=== PATIENT | male | born 1995 | race Caucasian/White ===

== ENCOUNTER 2016-07-05 21:27 | Emergency (ER) | payer BC ==
[2016-07-05 22:18] VITALS: BP 116/63
[2016-07-05] MEDS ORDERED: OXYCODONE-ACETAMINOPHEN 5-325 MG TABLET PO ONE (23:07)
--- NOTE | 2016-07-05 23:10 | ER Document Report ---
ED Extremity Problem, Lower - General Chief Complaint: Knee Injury Stated Complaint: LEFT KNEE INJURY Time Seen by Provider: 07/05/16 23:03 Mode of Arrival: Wheelchair Information source: Patient TRAVEL OUTSIDE OF THE [place] IN LAST 30 DAYS: No - HPI Patient complains to provider of: Injury, Pain Location: Knee Occurred: Just prior to arrival Where: Outdoors Onset/Duration: Sudden Quality of pain: Achy Severity: Moderate Pain Level: 4 Context: Twisted Recent injury: Yes Associated symptoms: Painful ambulation Exacerbated by: Movement, Walking Relieved by: Nothing Notes: Patient is a 20-year-old male who presents to the emergency room complaining of left knee pain, states he was stepping on uneven ground, when he stepped on his leg twisted and he felt a pop in the knee, has been painful to move or ambulate on it since, denies any other injury - Related Data Allergies/Adverse Reactions: No Known Allergies Allergy (Verified 07/05/16 22:16) Past Medical History - General Information source: Patient - Social History Smoking Status: Current Some Day Smoker Family History: Reviewed & Not Pertinent Renal/ Medical History: Denies: Hx Peritoneal Dialysis - Immunizations Hx Diphtheria, Pertussis, Tetanus Vaccination: Yes - 2009 Review of Systems - Review of Systems Constitutional: No symptoms reported EENT: No symptoms reported Cardiovascular: No symptoms reported Respiratory: No symptoms reported Gastrointestinal: No symptoms reported Genitourinary: No symptoms reported Male Genitourinary: No symptoms reported Musculoskeletal: See HPI Skin: No symptoms reported Hematologic/Lymphatic: No symptoms reported Neurological/Psychological: No symptoms reported -: Yes All other systems reviewed and negative Physical Exam - Vital signs Vitals: Temp Pulse Resp BP Pulse Ox 98.5 F 68 20 116/63 99 07/05/16 22:16 07/05/16 22:16 07/05/16 22:16 07/05/16 22:16 07/05/16 22:16 - Notes Notes: - General General appearance: Appears well, Alert In distress: None - HEENT Head: Normocephalic, Atraumatic Eyes: Normal Conjunctiva: Normal Extraocular movements intact: Yes Eyelashes: Normal Pupils: PERRL - Respiratory Respiratory status: No respiratory distress - Cardiovascular Rhythm: Regular - Abdominal Inspection: Normal - Back Back: Normal - Extremities General upper extremity: Normal inspection - Neurological Neuro grossly intact: Yes Orientation: AAOx4 [place] Coma Scale Eye Opening: Spontaneous [place] Coma Scale Verbal: Oriented [place] Coma Scale Motor: Obeys Commands [place] Coma Scale Total: 15 - Psychological Associated symptoms: Normal affect, Normal mood - Skin Skin Temperature: Warm Skin Moisture: Dry Skin Color: Normal - Extremities Knee: Tender, Pain with ROM, Other - Pain with range of motion testing, tenderness to palpate on the medial and lateral joint lines, distal sensation and motor is intact with 2+ DP pulses Course - Re-evaluation Re-evalutation: 07/05/16 23:16 Imaging findings unremarkable and discussed with patient, he was placed in a knee immobilizer, provided with pain medication and crutches as well as information for follow-up with orthopedics, patient advised to follow-up in 2-3 days or return if symptoms worsen, patient acknowledges understanding and agreement with this plan - Vital Signs Vital signs: Temp Pulse Resp BP Pulse Ox 98.5 F 68 20 116/63 99 07/05/16 22:16 07/05/16 22:16 07/05/16 22:16 07/05/16 22:16 07/05/16 22:16 - Diagnostic Test Radiology reviewed: Image reviewed, Reports reviewed Procedures - Immobilization Left Knee Time completed: 23:08 Pre-Proc Neuro Vasc Exam: Normal Immobilizer type: Knee immobilizer Performed by: PCT Post-Proc Neuro Vasc Exam: Normal Alignment checked and good: Yes Discharge - Discharge Clinical Impression: Left knee injury Qualifiers: Encounter type: initial encounter Qualified Code(s): S89.92XA - Unspecified injury of left lower leg, initial encounter Condition: Stable Disposition: HOME, SELF-CARE Instructions: Use of Crutches ([facility]), Ice & Elevation ([facility]), Suspected Internal Knee Injury ([facility]), Knee Immobilizing Splint ([facility]), Oral Narcotic Medication ([facility] ), Sprained Knee ([facility]) Additional Instructions: Follow up with your primary care provider and an orthopedic surgeon in one to 2 days. Return to the emergency room immediately if symptoms worsen or any additional concerns. Ice and elevate the affected extremity. Limit weightbearing. Prescriptions: Oxycodone HCl/Acetaminophen [Percocet 5-325 mg Tablet] 1 - 2 tab PO ASDIR PRN # 15 tablet PRN Reason: Forms: Return to Work Referrals: REYNALDO SEO MD [ACTIVE STAFF] - Follow up as needed
== END 2016-07-05 23:12 | disposition home or self-care (01) ==
LOC: ER 21:27
DX: S89.92XA Unspecified injury of left lower leg, initial encounter (principal); X50.1XXA Overexertion from prolonged static or awkward postures, initial encounter; F17.200 Nicotine dependence, unspecified, uncomplicated
CPT/HCPCS: 99283; L1830

== ENCOUNTER 2017-04-14 02:43 | Emergency (ER) | payer SELFPAY ==
[2017-04-14] MEDS ORDERED: DIPHENHYDRAMINE HCL 50 MG/ML VIAL IM ONE (03:48)
[2017-04-14] MEDS ORDERED: FAMOTIDINE 20 MG TABLET PO ONE (03:48)
--- NOTE | 2017-04-14 03:52 | ER Document Report ---
ED Allergic Reaction - General Mode of Arrival: Ambulatory Information source: Patient TRAVEL OUTSIDE OF THE [place] IN LAST 30 DAYS: No - General Chief Complaint: Allergic Reaction Stated Complaint: POSSIBLE ALLERGIC REACTION Time Seen by Provider: 04/14/17 03:20 Notes: Patient is a 21-year-old male who presents to the emergency department today with complaints of a possible allergic reaction. Patient states he woke up this morning at 0200 with an "itchy rash". Patient states that they did buy a new comforter 2 days ago and did not wash it prior to using it. Patient states he tried a Benadryl stick which did help "a little bit". Patient also mentions he has chest pain with breathing. Patient states that he has a "sensation that he is going to vomit" intermittently. Patient denies shortness of breath. (KAITLIN CAMILO) Chest pain is relieved by pushing on it. (SEGUN ZARATE) - Related Data Allergies/Adverse Reactions: No Known Allergies Allergy (Verified 07/05/16 22:16) Past Medical History - General Information source: Patient - Social History Smoking Status: Current Every Day Smoker Cigarette use (# per day): Yes Chew tobacco use (# tins/day): No Frequency of alcohol use: Social Drug Abuse: None Lives with: Family Family History: Reviewed & Not Pertinent Patient has suicidal ideation: No Patient has homicidal ideation: No Renal/ Medical History: Denies: Hx Peritoneal Dialysis Surgical Hx: Negative - Immunizations Hx Diphtheria, Pertussis, Tetanus Vaccination: Yes - 2009 Review of Systems - Review of Systems Constitutional: No symptoms reported EENT: No symptoms reported Cardiovascular: See HPI, Chest pain Respiratory: denies: Short of breath Gastrointestinal: No symptoms reported Genitourinary: No symptoms reported Male Genitourinary: No symptoms reported Musculoskeletal: No symptoms reported Skin: See HPI, Rash Hematologic/Lymphatic: No symptoms reported Neurological/Psychological: No symptoms reported -: Yes All other systems reviewed and negative Physical Exam - Vital signs Vitals: Temp Pulse Resp BP Pulse Ox 97.3 F 114 H 22 H 137/62 H 96 04/14/17 02:46 04/14/17 02:46 04/14/17 02:46 04/14/17 02:46 04/14/17 02:46 - Notes Notes: PHYSICAL EXAM GENERAL: Alert, interacts well. No acute distress. HEAD: Normocephalic, atraumatic. EYES: Pupils equal, round, and reactive to light. Extraocular movements intact. ENT: Oral mucosa moist, tongue midline. Airway is patent. No lip swelling. NECK: Full range of motion. Supple. Trachea midline. LUNGS: Clear to auscultation bilaterally, no wheezes, rales, or rhonchi. No respiratory distress. HEART: Regular rate and rhythm. No murmurs, gallops, or rubs. ABDOMEN: Non-distended. EXTREMITIES: Moves all 4 extremities spontaneously. No edema, radial and dorsalis pedis pulses 2/4 bilaterally. No cyanosis. NEUROLOGICAL: Alert and oriented x3. Normal speech. PSYCH: Normal affect, normal mood. SKIN: Warm, dry, normal turgor. Diffuse blanchable urticarial rash. Diffuse raised lesions across back and chest, worsened on legs bilaterally. Non-raised lesions on distal half of legs bilaterally. Negative Nikolsky sign (KAITLIN CAMILO) Course - Re-evaluation Re-evalutation: 04/14/17 03:52 No evidence of acute airway involvement, no swelling of the lips or tongue, no evidence of Barnes-Rafael syndrome, no skin sloughing. Likely contact dermatitis from the new bedside that was not washed. Discussed with patient the importance of washing the bedside, taking Benadryl for symptomatic relief. Chest discomfort very unlikely to be acute coronary syndrome as it gets better when he pushes on it. EKG is negative. Patient has no risk factors for acute coronary syndrome at such an early age. Patient will be discharged home, will return should the rash worsen, he develop difficulty breathing, he develops blistering or any new or concerning symptoms. (SEGUN ZARATE) - Vital Signs Vital signs: Temp Pulse Resp BP Pulse Ox 97.3 F 114 H 20 122/71 99 04/14/17 02:46 04/14/17 02:46 04/14/17 04:01 04/14/17 04:01 04/14/17 04:01 - EKG Interpretation by Me Additional EKG results interpreted by me: 04/14/17 03:53 EKG shows sinus rhythm at a rate of 90, normal axis, normal intervals, no ST segment elevations or depressions, isolated T-wave inversion in lead III per my interpretation. (SEGUN ZARATE) Discharge - Discharge Clinical Impression: Pre-hypertension, Pleuritic chest pain Contact dermatitis Qualifiers: Contact dermatitis type: allergic Contact dermatitis trigger: unspecified trigger Qualified Code(s): L23.9 - Allergic contact dermatitis, unspecified cause Condition: Stable Disposition: HOME, SELF-CARE Additional Instructions: Allergic Contact Dermatitis You have a local allergic reaction, called contact dermatitis. This an allergy to something in contact with your skin. Poison tess, jewelry, soaps, perfumes, and chemicals are common causes. Typically, an itchy rash develops a few days after the exposure. Two to three weeks may be required for healing, but she should see significant improvement within 2 days. Generally, treatment consists of: (1) a thorough washing with soap to remove the offending substance, (2) application of a cortisone cream, such as hydrocortisone cream which can be purchased [id number], and (3) antihistamines for itching, such as Benadryl that can be purchased over-the- counter. If the reaction is particularly severe, further measures may be required. Call the doctor if the rash worsens despite treatment, or if signs of infection occur such as spreading redness, red streaks, swollen glands, swelling , or fever or blisters. Forms: Return to Work Referrals: MELINA ZIMMER MD [ACTIVE STAFF] - Follow up in 1 week [employer] Attestation: 04/14/17 06:28 I personally performed the services described in the documentation, reviewed and edited the documentation which was dictated to the scribe in my presence, and it accurately records my words and actions. (SEGUN ZARATE) Scribe Documentation - Scribe Written by Awilda:: Awilda Reyes, 04/14/2017 0404 acting as scribe for :: Tim
[2017-04-14 04:06] VITALS: BP 122/71
--- NOTE | 2017-04-14 07:43 | EKG REPORT ---
SEVERITY:- NORMAL ECG - SINUS RHYTHM : Confirmed by: Brent Packer MD 14-Apr-2017 07:43:13
== END 2017-04-14 04:06 | disposition home or self-care (01) ==
LOC: ER 02:43
DX: L23.9 Allergic contact dermatitis, unspecified cause (principal); R07.81 Pleurodynia; R03.0 Elevated blood-pressure reading, without diagnosis of hypertension; R19.8 Other specified symptoms and signs involving the digestive system and abdomen; F17.210 Nicotine dependence, cigarettes, uncomplicated
CPT/HCPCS: 93005; 99283; 96372; 93010; J1200

== ENCOUNTER 2017-07-05 10:46 | Emergency (ER) | payer BC ==
[2017-07-05 10:51] VITALS: BP 116/66
--- NOTE | 2017-07-05 11:57 | ER Document Report ---
ED General - General Chief Complaint: Laceration Stated Complaint: FALL/HEAD INJURY Time Seen by Provider: 07/05/17 11:37 Mode of Arrival: Ambulatory Information source: Patient Notes: 21-year-old male presents with 2 separate complaints. His presenting complaint is for a mechanical fall causing a forehead laceration in the hairline. Patient secondary complaint is a cyst on the back of his left ear that has been there for 1 year duration that is tender. Patient denies any fevers or chills denies any confusion denies any weakness numbness TRAVEL OUTSIDE OF THE [place] IN LAST 30 DAYS: No - HPI Onset: Just prior to arrival Onset/Duration: Sudden Quality of pain: Sharp Severity: Mild Pain Level: 1 Associated symptoms: Headache Exacerbated by: Movement Relieved by: Denies Similar symptoms previously: No Recently seen / treated by doctor: No - Related Data Allergies/Adverse Reactions: No Known Allergies Allergy (Verified 07/05/17 11:29) Past Medical History - Social History Smoking Status: Current Every Day Smoker Cigarette use (# per day): Yes Chew tobacco use (# tins/day): No Smoking Education Provided: No Frequency of alcohol use: None Drug Abuse: None Family History: Reviewed & Not Pertinent Patient has suicidal ideation: No Patient has homicidal ideation: No Renal/ Medical History: Denies: Hx Peritoneal Dialysis - Immunizations Hx Diphtheria, Pertussis, Tetanus Vaccination: Yes - 2009 Review of Systems - Review of Systems Notes: REVIEW OF SYSTEMS: CONSTITUTIONAL : Denies fever, chills, or sweats. Denies recent illness. EENT: Abscess behind left ear CARDIOVASCULAR: Denies chest pain. Denies palpitations or racing or irregular heart beat. Denies ankle edema. RESPIRATORY: Denies cough, cold, or chest congestion. Denies shortness of breath, difficulty breathing, or wheezing. GASTROINTESTINAL: Denies abdominal pain or distention. Denies nausea, vomiting , or diarrhea. Denies blood in vomitus, stools, or per rectum. Denies black, tarry stools. Denies constipation. GENITOURINARY: Denies difficulty urinating, painful urination, burning, frequency, blood in urine, or discharge. MUSCULOSKELETAL: Denies back or neck pain or stiffness. Denies joint pain or swelling. SKIN: Forehead laceration HEMATOLOGIC : Denies easy bruising or bleeding. LYMPHATIC: Denies swollen, enlarged glands. NEUROLOGICAL: Denies confusion or altered mental status. Denies passing out or loss of consciousness. Denies dizziness or lightheadedness. Denies headache. Denies weakness or paralysis or loss of use of either side. Denies problems with gait or speech. Denies sensory loss, numbness, or tingling. Denies seizures. PSYCHIATRIC: Denies anxiety or stress. Denies depression, suicidal ideation, or homicidal ideation. ALL OTHER SYSTEMS REVIEWED AND NEGATIVE. Dictation was performed using [email or web address] voice recognition software PHYSICAL EXAMINATION: GENERAL: Well-appearing, well-nourished and in no acute distress. HEAD: Atraumatic, normocephalic. EYES: Pupils equal round and reactive to light, extraocular movements intact, sclera anicteric, conjunctiva are normal. ENT: Nares patent, oropharynx clear without exudates. Moist mucous membranes. NECK: Normal range of motion, supple without lymphadenopathy LUNGS: Breath sounds clear to auscultation bilaterally and equal. No wheezes rales or rhonchi. HEART: Regular rate and rhythm without murmurs ABDOMEN: Soft, nontender, nondistended abdomen. No guarding, no rebound. No masses appreciated. Musculoskeletal: Normal range of motion, no pitting or edema. No cyanosis. NEUROLOGICAL: Cranial nerves grossly intact. Normal speech, normal gait. Normal sensory, motor exams PSYCH: Normal mood, normal affect. 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 Also, there is no evidence or peritonitis, sepsis, or toxicity. I have reevaluated this patient multiple times and no significant life threatening changes are noted. The patient and I have discussed the diagnosis and risks, and we agree with discharging home with close follow-up with the understanding that symptoms and presentations can change. We also discussed returning to the Emergency Department immediately if new or worsening symptoms occur. We have discussed the symptoms which are most concerning (e.g., changing or worsening pain, fever, numbness, weakness, cool or painful digits) that necessitate immediate return. - Vital Signs Vital signs: Temp Pulse Resp BP Pulse Ox 98.5 F 81 16 116/66 98 07/05/17 10:50 07/05/17 10:50 07/05/17 10:50 07/05/17 10:50 07/05/17 10:50 Procedures - Incision and Drainage Left Face Time completed: 13:10 Type: Simple Anesthetic type: 1% Lidocaine mL's of anesthetic: 5 Blade size: 11 Incision Method: Incision made by scalpel Amount/type of drainage: thick cystic material - Laceration/Wound Repair Upper Face Time completed: 11:55 Wound length (cm): 3.5 Wound's Depth, Shape: Superficial, Linear Laceration pre-procedure: Sterile PPE donned, Shur-Clens applied Wound explored: Clean, No foreign body removed Irrigated w/ Saline (mLs): 500 Wound Debrided: Minimal Wound Repaired With: Juwan Number of Sutures: 3 Post-procedure wound care: Sterile dressing applied Post-procedure NV exam normal: Yes Complications: No Discharge - Discharge Clinical Impression: Cyst on ear Laceration of forehead without complication Qualifiers: Encounter type: initial encounter Qualified Code(s): S01.81XA - Laceration without foreign body of other part of head, initial encounter Condition: Stable Disposition: HOME, SELF-CARE Instructions: Laceration Care ([facility]) Additional Instructions: Follow up for removal of juwan in 3-5 days return immediately if there are any other concerns Prescriptions: Cephalexin Monohydrate [Keflex 500 mg Capsule] 500 mg PO Q6H 5 Days capsule Hydrocodone/Acetaminophen [Jefferson 5-325 mg Tablet] 1 tab PO Q6 #8 tablet Forms: Return to Work
== END 2017-07-05 12:52 | disposition home or self-care (01) ==
LOC: ER 10:46
PROC: 0H93XZZ Drainage of Left Ear Skin, External Approach (ICD-10-PCS; principal; 2017-07-05)
PROC: 0HQ1XZZ Repair Face Skin, External Approach (ICD-10-PCS; 2017-07-05)
DX: S01.81XA Laceration without foreign body of other part of head, initial encounter (principal); L02.01 Cutaneous abscess of face; Q18.1 Preauricular sinus and cyst; F17.210 Nicotine dependence, cigarettes, uncomplicated
CPT/HCPCS: 99282

== ENCOUNTER 2017-07-25 11:10 | Observation (INO) | payer BC ==
--- NOTE | 2017-07-25 11:48 | ER Document Report ---
ED General - General Chief Complaint: Abdominal Pain Stated Complaint: STOMACH PAIN Time Seen by Provider: 07/25/17 11:35 Mode of Arrival: Ambulatory Information source: Patient Notes: 21-year-old male presents with complaints of right upper quadrant umbilical pain of 2 day duration. Patient denies any fevers or chills denies any nausea vomiting or diarrhea. Patient notes the pain has not changed, patient was concerned about appendicitis but notes that there is no right lower quadrant abdominal pain TRAVEL OUTSIDE OF THE [place] IN LAST 30 DAYS: No - HPI Onset: Other - 2 day duration Onset/Duration: Persistent Quality of pain: Sharp Severity: Mild Pain Level: 2 Associated symptoms: Other Exacerbated by: Denies Relieved by: Denies Similar symptoms previously: No Recently seen / treated by doctor: Yes - Seen for laceration abscess - Related Data Allergies/Adverse Reactions: No Known Allergies Allergy (Verified 07/25/17 11:10) Past Medical History - Social History Smoking Status: Never Smoker Cigarette use (# per day): No Chew tobacco use (# tins/day): No Smoking Education Provided: No Frequency of alcohol use: None Drug Abuse: None Family History: Reviewed & Not Pertinent Patient has suicidal ideation: No Patient has homicidal ideation: No Renal/ Medical History: Denies: Hx Peritoneal Dialysis - Immunizations Hx Diphtheria, Pertussis, Tetanus Vaccination: Yes - 2009 Review of Systems - Review of Systems Notes: REVIEW OF SYSTEMS: CONSTITUTIONAL : Denies fever, chills, or sweats. Denies recent illness. EENT: Denies eye, ear, throat, or mouth pain or symptoms. Denies nasal or sinus congestion or discharge. Denies throat, tongue, or mouth swelling or difficulty swallowing. CARDIOVASCULAR: Denies chest pain. Denies palpitations or racing or irregular heart beat. Denies ankle edema. RESPIRATORY: Denies cough, cold, or chest congestion. Denies shortness of breath, difficulty breathing, or wheezing. GASTROINTESTINAL: Admits to abdominal pain GENITOURINARY: Denies difficulty urinating, painful urination, burning, frequency, blood in urine, or discharge. MUSCULOSKELETAL: Denies back or neck pain or stiffness. Denies joint pain or swelling. SKIN: Denies rash, lesions or sores. HEMATOLOGIC : Denies easy bruising or bleeding. LYMPHATIC: Denies swollen, enlarged glands. NEUROLOGICAL: Denies confusion or altered mental status. Denies passing out or loss of consciousness. Denies dizziness or lightheadedness. Denies headache. Denies weakness or paralysis or loss of use of either side. Denies problems with gait or speech. Denies sensory loss, numbness, or tingling. Denies seizures. PSYCHIATRIC: Denies anxiety or stress. Denies depression, suicidal ideation, or homicidal ideation. ALL OTHER SYSTEMS REVIEWED AND NEGATIVE. Dictation was performed using [employer] voice recognition software PHYSICAL EXAMINATION: GENERAL: Well-appearing, well-nourished and in no acute distress. HEAD: Atraumatic, normocephalic. EYES: Pupils equal round and reactive to light, extraocular movements intact, sclera anicteric, conjunctiva are normal. ENT: Nares patent, oropharynx clear without exudates. Moist mucous membranes. Small cysts well-healed of the left posterior auricular region NECK: Normal range of motion, supple without lymphadenopathy LUNGS: Breath sounds clear to auscultation bilaterally and equal. No wheezes rales or rhonchi. HEART: Regular rate and rhythm without murmurs ABDOMEN: Soft, mildly tender in the umbilical right upper quadrant region, nondistended abdomen. No guarding, no rebound. No masses appreciated. Musculoskeletal: Normal range of motion, no pitting or edema. No cyanosis. NEUROLOGICAL: Cranial nerves grossly intact. Normal speech, normal gait. Normal sensory, motor exams PSYCH: Normal mood, normal affect. SKIN: Forehead scalp laceration warm, Dry, normal turgor, no rashes or lesions noted. Physical Exam - Vital signs Vitals: Temp Pulse Resp BP Pulse Ox 98.6 F 53 L 16 119/66 99 07/25/17 11:15 07/25/17 11:15 07/25/17 11:15 07/25/17 11:15 07/25/17 11:15 Course - Re-evaluation Re-evalutation: 07/25/17 11:46 Patient has no previous history of abdominal pain, I have low suspicion of appendicitis or any other life-threatening issues 07/25/17 12:38 CT was consistent with appendicitis . dr dwyer will admit - Vital Signs Vital signs: Temp Pulse Resp BP Pulse Ox 98.6 F 53 L 16 119/66 99 07/25/17 11:15 07/25/17 11:15 07/25/17 11:15 07/25/17 11:15 07/25/17 11:15 - Laboratory Result Diagrams: 07/25/17 12:00 07/25/17 12:00 Laboratory results interpreted by me: 07/25/17 12:00 Eosinophils % 6.6 H Discharge - Discharge Clinical Impression: Appendicitis Qualifiers: Appendicitis type: acute appendicitis Acute appendicitis type: with localized peritonitis Qualified Code(s): K35.3 - Acute appendicitis with localized peritonitis Condition: Stable Disposition: ADMITTED OBSERVATION Admitting Provider: Surgicalist Unit Admitted: Surgical Floor
[2017-07-25 12:25] LABS: ABSOLUTE EOSINOPHILS # (AUTO) 0.4 10^3/uL (0.0-0.6); ABSOLUTE LYMPHOCYTES (AUTO) 1.9 10^3/uL (0.5-4.7); ABSOLUTE MONOCYTES (AUTO) 0.6 10^3/uL (0.1-1.4); ABSOLUTE NEUT (AUTO) 3.1 10^3/uL (1.7-8.2); BASOPHILS % (AUTO) 0.5 % (0-2); EOSINOPHILS % (AUTO) 6.6 % (0-6); HEMATOCRIT 42.1 % (37.9-51.0); HEMOGLOBIN 14.4 g/dL (13.5-17.0); LYMPHOCYTES % (AUTO) 30.8 % (13-45); MEAN CORPUSCULAR HEMOGLOBIN 30.3 pg (27.0-33.4); MEAN CORPUSCULAR HGB CONC 34.3 g/dL (32.0-36.0); MEAN CORPUSCULAR VOLUME 88 fl (80-97); MONOCYTES % (AUTO) 10.5 % (3-13); PLATELET COUNT 170 10^3/uL (150-450); RED BLOOD COUNT 4.76 10^6/uL (4.35-5.55); RED CELL DISTRIBUTION WIDTH 13.9 % (11.5-14.0); SEGMENTED NEUTROPHILS % (AUTO) 51.6 % (42-78); TOTAL CELLS COUNTED % (AUTO) 100 %
[2017-07-25] MEDS ORDERED: KETOROLAC TROMETHAMINE INJ/PF 30 MG/1 ML SDV IV ONE (12:27)
--- NOTE | 2017-07-25 12:34 | RADIOLOGY REPORT (SQ) ---
EXAM DESCRIPTION: CT ABD/PELVIS WITH IV ONLY COMPLETED DATE/TIME: 07/25/2017 12:20 pm REASON FOR STUDY: RUQ and umbilacal pain COMPARISON: None. TECHNIQUE: CT scan of the abdomen and pelvis performed using helical scanning technique with dynamic intravenous contrast injection. No oral contrast. Images reviewed with lung, soft tissue, and bone windows. Reconstructed coronal and sagittal MPR images reviewed. Delayed images for evaluation of the urinary system also acquired. All images stored on PACS. All CT scanners at this facility use dose modulation, iterative reconstruction, and/or weight based d osing when appropriate to reduce radiation dose to as low as reasonably achievable (ALARA). [facility]: Dose Right [facility]: CareDose [facility]: Dose Right [facility]: Teradose 4D [facility]: [employer] CONTRAST TYPE AND DOSE: contrast/concentration: Isovue 370.00 mg/ml; Total Contrast Delivered: 100.0 ml; Total Saline Delivered: 72.0 ml RENAL FUNCTION: None required. The patient is less than 50 years old. RADIATION DOSE: CT Rad equipment meets quality standard of care and radiation dose reduction techniq ues were employed. CTDIvol: 12.2 - 16.1 mGy. DLP: 1598 mGy-cm.. LIMITATIONS: None. FINDINGS: LOWER CHEST: No significant findings. No nodules or infiltrates. LIVER: Normal size. No masses. No dilated ducts. SPLEEN: Normal size. No focal lesions. PANCREAS: No masses. No significant calcifications. No adjacent inflammation or peripancreatic fluid collections. Pancreatic duct not dilated. GALLBLADDER: No identified stones by CT criteria. No inflammatory changes to suggest cholecystitis. ADRENAL GLANDS: No significant masses or asymmetry. RIGHT KIDNEY AND URETER: No solid masses. No significant calcifications. No hydronephrosis or hyd roureter. LEFT KIDNEY AND URETER: No solid masses. No significant calcifications. No hydronephrosis or hydr oureter. AORTA AND VESSELS: No aneurysm. No dissection. Renal arteries, SMA, celiac without stenosis. RETROPERITONEUM: No retroperitoneal adenopathy, hemorrhage or masses. BOWEL AND PERITONEAL CAVITY: No masses or inflammatory changes. No free fluid or peritoneal masses. APPENDIX: Thickened measuring 8 mm with surrounding stranding compatible with acute appendicitis. PELVIS: No mass. No free fluid. Normal bladder. ABDOMINAL WALL: No masses. No hernias. BONES: Multilevel degenerative disc disease most notable at L4-L5 and L5-S1. Fragmented right superi or acetabulum. OTHER: No other significant finding. IMPRESSION: ACUTE APPENDICITIS. DEGENERATIVE DISC DISEASE. 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 CORREL ATE WITH PHYSICAL EXAM FINDINGS PUT TECHNICAL DOCUMENTATION: JOB ID: [id number] Quality ID # [id number]: Final reports with documentation of one or more dose reduction techniques (e.g., Au tomated exposure control, adjustment of the mA and/or kV according to patient size, use of iterative reconstruction technique) 2010 [employer]- All Rights Reserved Reading location - IP/workstation name: [email or web address]
[2017-07-25] MEDS ORDERED: PIPERACILLIN/TAZOBACTAM 3.375 GM VIAL IV ONE (12:37)
[2017-07-25] MEDS ORDERED: NORMAL SALINE 1000 ML 1,000 ML IV ONE ×2 (12:37→14:39)
[2017-07-25] MEDS ORDERED: FENTANYL CITRATE INJ/PF 100 MCG/2 ML AMPUL IV ONE (12:39)
[2017-07-25 12:52] LABS: ALANINE AMINOTRANSFERASE 21 U/L (21-72); ALBUMIN 4.1 g/dL (3.5-5.0); ALKALINE PHOSPHATASE 63 U/L (38-126); ANION GAP 9 (5-19); ASPARTATE AMINO TRANSFERASE 13 U/L (17-59); BILIRUBIN,DIRECT 0.3 mg/dL (0.0-0.4); BILIRUBIN,TOTAL 0.3 mg/dL (0.2-1.3); BLOOD UREA NITROGEN 12 mg/dL (7-20); CALCIUM 9.3 mg/dL (8.4-10.2); CARBON DIOXIDE 27 mmol/L (22-30); CHLORIDE 106 mmol/L (98-107); GLUCOSE 93 mg/dL (75-110); LIPASE 33.3 U/L (23-300); POTASSIUM 4.4 mmol/L (3.6-5.0); SODIUM 141.9 mmol/L (137-145); TOTAL PROTEIN 6.7 g/dL (6.3-8.2)
--- NOTE | 2017-07-25 14:51 | PDOC H&P ---
History of Present Illness Admission Date/PCP: 07/25/17 12:43 Patient complains of: Epigastric pains History of Present Illness: PRO MARTINEZ is a 21 year old male c/o epigastric pains about 2 days ago associated nausea. Denies fever, chills diarrhea. Past Medical History Medical History: None Past Surgical History Past Surgical History: Reports: None Social History Smoking Status: Current Every Day Smoker Cigarettes Packs Per Day: 1.0 Family History Family History: Reviewed & Not Pertinent Parental Family History Reviewed: Yes Children Family History Reviewed: No Sibling(s) Family History Reviewed.: No Medication/Allergy Home Medications: No Home Medications 07/25/17 Allergies/Adverse Reactions: No Known Allergies Allergy (Verified 07/25/17 11:10) Review of Systems Constitutional: PRESENT: as per HPI Eyes: PRESENT: other - no visual/hearing changes Cardiovascular: PRESENT: other - no cough/chest pains Gastrointestinal: PRESENT: abdominal pain, nausea Genitourinary: PRESENT: other - no dysuria Musculoskeletal: PRESENT: back pain Neurological: PRESENT: other - no seizures Hematologic/Lymphatic: PRESENT: other - no easy bruising Physical Exam Vital Signs: Temp Pulse Resp BP Pulse Ox 98.6 F 53 L 16 119/66 99 07/25/17 11:15 07/25/17 11:15 07/25/17 11:15 07/25/17 11:15 07/25/17 11:15 General appearance: PRESENT: mild distress Head exam: PRESENT: atraumatic Eye exam: PRESENT: conjunctiva pink Mouth exam: PRESENT: moist Neck exam: PRESENT: full ROM Respiratory exam: PRESENT: clear to auscultation indra Cardiovascular exam: PRESENT: RRR Pulses: PRESENT: normal radial pulses Vascular exam: PRESENT: normal capillary refill GI/Abdominal exam: PRESENT: soft, tenderness - Epigastric and RLQ Rectal exam: PRESENT: deferred Extremities exam: PRESENT: full ROM Musculoskeletal exam: PRESENT: ambulatory Neurological exam: PRESENT: alert, oriented to person, oriented to place, oriented to time, oriented to situation Psychiatric exam: PRESENT: appropriate affect Skin exam: PRESENT: normal color, warm Results Impressions: Abdomen/Pelvis CT 07/25/17 11:43 IMPRESSION: ACUTE APPENDICITIS. DEGENERATIVE DISC DISEASE. 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 CORRELATE WITH PHYSICAL EXAM FINDINGS PUT Assessment & Plan - Diagnosis (1) Smoker Is this a current diagnosis for this admission?: Yes - Time Time Spent: 30 to 50 Minutes - Plan Summary Plan Summary: For Lap appendectomy IV antibiotics Hydrate
[2017-07-25] MEDS ORDERED: HYDROMORPHONE HCL INJ/PF 2 MG/ML AMPULE IV ONE ×2 (15:04→23:45)
[2017-07-25] MEDS ORDERED: HYDROMORPHONE HCL INJ/PF 2 MG/ML AMPULE ONE ×2 (15:11→23:48)
[2017-07-25] MEDS ORDERED: FENTANYL CITRATE INJ/PF 250 MCG/5 ML AMPULE ONE (15:11)
[2017-07-25] MEDS ORDERED: PROPOFOL INJ 200 MG/20 ML VIAL IV ONE (15:11)
[2017-07-25] MEDS ORDERED: MIDAZOLAM 2 MG/2 ML INJ ONE (15:11)
[2017-07-25] MEDS ORDERED: BUPIVACAINE HCL 0.25 % INJ/PF (2.5 MG/1 ML) 30 ML VIAL ONE (15:26)
[2017-07-25] MEDS ORDERED: PROMETHAZINE HCL INJ 25 MG/1 ML VIAL IV PRN (15:53)
[2017-07-25] MEDS ORDERED: DIPHENHYDRAMINE HCL 50 MG/ML VIAL IV PRN (15:53)
[2017-07-25] MEDS ORDERED: MEPERIDINE HCL/PF INJ 25 MG/1 ML DISP.SYRIN IV PRN (15:53)
[2017-07-25] MEDS ORDERED: MORPHINE SULFATE 10 MG/ML INJ IV PRN ×2 (15:53→17:19)
[2017-07-25] MEDS ORDERED: FENTANYL CITRATE INJ/PF 100 MCG/2 ML AMPUL IV PRN ×3 (15:53)
[2017-07-25] MEDS ORDERED: NEOSTIGMINE METHYLSULFATE 10 MG/10 ML VIAL ONE (16:18)
[2017-07-25] MEDS ORDERED: LIDOCAINE 2% INJ-PF (20 MG/ML) 2 ML AMPUL ONE (16:18)
[2017-07-25] MEDS ORDERED: DEXAMETHASONE SOD PHOSPHATE INJ 4 MG/1 ML VIAL ONE (16:18)
[2017-07-25] MEDS ORDERED: SUCCINYLCHOLINE CHLORIDE INJ 200 MG/10 ML VIAL ONE (16:18)
[2017-07-25] MEDS ORDERED: GLYCOPYRROLATE INJ 0.4 MG/2 ML VIAL ONE (16:18)
[2017-07-25] MEDS ORDERED: ONDANSETRON HCL INJ/PF 4 MG/2 ML SDV ONE (16:18)
[2017-07-25] MEDS ORDERED: VECURONIUM BROMIDE INJ 10 MG VIAL IV ONE (16:18)
[2017-07-25] MEDS ORDERED: MORPHINE SULFATE 10 MG/ML INJ ONE (16:34)
[2017-07-25] MEDS ORDERED: PROMETHAZINE HCL INJ 25 MG/1 ML VIAL ONE ×2 (16:39→16:47)
[2017-07-25] MEDS ORDERED: FENTANYL CITRATE INJ/PF 100 MCG/2 ML AMPUL ONE (16:39)
[2017-07-25] MEDS ORDERED: MEPERIDINE HCL/PF INJ 25 MG/1 ML DISP.SYRIN ONE (16:47)
[2017-07-25] MEDS ORDERED: NORMAL SALINE 1000 ML 1,000 ML IV PRN (17:19)
--- NOTE | 2017-07-25 17:44 | OPERATIVE REPORT E ---
DATE OF SURGERY: 07/25/2017 PREOPERATIVE DIAGNOSIS: Acute appendicitis. POSTOPERATIVE DIAGNOSIS: Acute appendicitis. OPERATION: Laparoscopic appendectomy. SURGEON: PEBBLES OWUSU M.D. ANESTHESIA: General. INDICATIONS: This is a 31-year-old male complaining of abdominal pains for the past 2 days with nausea. He had a CAT scan in the ED which showed acute appendicitis. DESCRIPTION OF PROCEDURE: After adequate general anesthesia, the patient was placed in a supine position and the abdomen prepped and draped in the usual sterile fashion. Appropriate time-out was then called. An infraumbilical incision was then made and the fascia divided and a Chase trocar inserted into the abdominal cavity. CO2 was insufflated to a pressure of 15 mmHg. The camera was inserted and 2 other ports, a 5 mm in the suprapubic and 12 mm in the left lower quadrant with inflation under double vision. Next the appendix was noted to be quite inflamed, primarily at the tip. With the stent elevated, the Brocket and the window placed within the appendix and the cecum. The mesoappendix was then divided and cauterized with the Harmonic claudia. The base of the appendix was subsequently stapled with an endoGIA. The specimen was then placed in an Endobag and pulled out through the umbilical port. The appendicial stump was inspected and irrigated and no evidence of bleeding noted. The stump looks good and I do not see any evidence of inflammation right at the stump. The rest of the abdominal cavity was inspected visually with a camera and no obvious abnormality noted. Next the omentum was then partially draped over the appendicial stump. All the trocars were removed and no evidence of bleeding at the trocar sites on removing under camera visibility. Next the infraumbilical and fascial defect was then closed with a [id number] suture using 0 Vicryl and all the skin incisions were closed with a running subcuticular 4-0 Vicryl undyed. A skin glue was used as a dressing. The patient tolerated procedure well and was brought to the recovery room in satisfactory condition. Needle, instrument, and sponge counts were all correct. Estimated blood loss 10 mL. DICTATING PHYSICIAN: PEBBLES OWUSU M.D. DT: 0000 PHY#: [id number] ID: [id number] JOB#: [id number] ACCT: [id number] cc:PEBBLES OWUSU M.D. >
[2017-07-25] MEDS: OXYCODONE-ACETAMINOPHEN 5-325 MG TABLET PO PRN (22:07)
[2017-07-25] MEDS ORDERED: KETOROLAC TROMETHAMINE INJ/PF 30 MG/1 ML SDV IV PRN (23:38)
[2017-07-25] MEDS ORDERED: NICOTINE 21 MG/24 HR PATCH.TD24 TD ONE (23:45)
[2017-07-26] MEDS: OXYCODONE-ACETAMINOPHEN 5-325 MG TABLET PO PRN (06:11)
[2017-07-26 09:39] VITALS: BP 125/69
[2017-07-26] MEDS ORDERED: NICOTINE 21 MG/24 HR PATCH.TD24 TD SCH (10:00)
[2017-07-26] MEDS ORDERED: KETOROLAC TROMETHAMINE INJ/PF 30 MG/1 ML SDV INJ ONE (10:30)
== END 2017-07-26 10:00 | disposition home or self-care (01) ==
LOC: ER 11:10 → EH 12:43 → 2N 17:28
PROVIDERS: ATTEND Surgery
PROC: 0DTJ4ZZ Resection of Appendix, Percutaneous Endoscopic Approach (ICD-10-PCS; principal; 2017-07-25 15:45)
DX: K35.80 Unspecified acute appendicitis (principal); F17.210 Nicotine dependence, cigarettes, uncomplicated; M54.9 Dorsalgia, unspecified; S01.81XA Laceration without foreign body of other part of head, initial encounter; X58.XXXA Exposure to other specified factors, initial encounter
CPT/HCPCS: 99285; 96361; 96375; 96365; 36415; 83690; 85025; 80053; 88304 ×2; 74177; 44970; G0378 ×2; J2250; J1100; J3010 ×2; J3490 ×2; J2175; J1885; J2270; J1170; J2550; J0330; J2405; J7030; J2704; J2543; 840

== ENCOUNTER 2018-02-18 18:53 | Emergency (ER) | payer BC ==
--- NOTE | 2018-02-18 19:36 | RADIOLOGY REPORT (SQ) ---
EXAM DESCRIPTION: HAND RIGHT 3 VIEWS COMPLETED DATE/TIME: 02/18/2018 7:26 pm REASON FOR STUDY: pain fb COMPARISON: None. EXAM PARAMETERS: NUMBER OF VIEWS: Three views. TECHNIQUE: AP, lateral and oblique radiographic images acquired of the right hand. LIMITATIONS: None. FINDINGS: MINERALIZATION: Normal. BONES: No acute fracture or dislocation. No worrisome bone lesions. JOINTS: No effusions. SOFT TISSUES: Extensive radio-opaque foreign bodies present along the 4th and 5th metacarpals. No ob vious fracture. OTHER: No other significant finding. IMPRESSION: Extensive foreign bodies present along the 4th and 5th metacarpals. TECHNICAL DOCUMENTATION: JOB ID: [id number] [employer]- All Rights Reserved Reading location - IP/workstation name: [email or web address]
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
[2018-02-18 20:32] VITALS: BP 126/74
== END 2018-02-18 20:31 | disposition home or self-care (01) ==
LOC: ER 18:53
DX: S60.551A Superficial foreign body of right hand, initial encounter (principal); W25.XXXA Contact with sharp glass, initial encounter
CPT/HCPCS: 99283

== ENCOUNTER 2018-02-22 14:38 | Day surgery (SDC) | payer BC ==
[~2018-02-22 14:38] MED LIST: DEXAMETHASONE SOD PHOSPHATE INJ 4 MG/1 ML VIAL ONE; KETOROLAC TROMETHAMINE 60 MG/2 ML SDV ONE; LIDOCAINE 2% INJ-PF (20 MG/ML) 2 ML AMPUL ONE; ONDANSETRON HCL INJ/PF 4 MG/2 ML SDV ONE; SUCCINYLCHOLINE CHLORIDE INJ 200 MG/10 ML VIAL ONE
[2018-02-22] MEDS ORDERED: RINGERS SOLUTION,LACTATED 1,000 ML IV PRN (15:01)
[2018-02-22 15:26] LABS: HEMATOCRIT 40.1 % (37.9-51.0); HEMOGLOBIN 13.9 g/dL (13.5-17.0); MEAN CORPUSCULAR HEMOGLOBIN 29.8 pg (27.0-33.4); MEAN CORPUSCULAR HGB CONC 34.6 g/dL (32.0-36.0); MEAN CORPUSCULAR VOLUME 86 fl (80-97); PLATELET COUNT 166 10^3/uL (150-450); RED BLOOD COUNT 4.66 10^6/uL (4.35-5.55); RED CELL DISTRIBUTION WIDTH 13.1 % (11.5-14.0); WHITE BLOOD COUNT 5.9 10^3/uL (4.0-10.5)
[2018-02-22] MEDS ORDERED: BUPIVACAINE HCL 0.5 % INJ/PF 30 ML SDV ONE (16:23)
[2018-02-22] MEDS ORDERED: HYDROMORPHONE HCL INJ/PF 2 MG/ML AMPULE ONE (16:28)
[2018-02-22] MEDS ORDERED: FENTANYL CITRATE INJ/PF 100 MCG/2 ML AMPUL ONE (16:28)
[2018-02-22] MEDS ORDERED: MIDAZOLAM 2 MG/2 ML INJ ONE (16:28)
[2018-02-22] MEDS ORDERED: PROPOFOL INJ 200 MG/20 ML VIAL IV ONE (16:29)
[2018-02-22] MEDS ORDERED: ACETAMINOPHEN 1,000 MG/100 ML RTUPB IV ONE (16:29)
[2018-02-22] MEDS ORDERED: CEFAZOLIN INJ 1 GM VIAL ONE (17:30)
[2018-02-22] MEDS ORDERED: MEPERIDINE HCL/PF INJ 25 MG/1 ML DISP.SYRIN IV PRN (17:32)
[2018-02-22] MEDS ORDERED: DIPHENHYDRAMINE HCL 50 MG/ML VIAL IV PRN (17:32)
[2018-02-22] MEDS ORDERED: PROMETHAZINE HCL INJ 25 MG/1 ML VIAL IV PRN (17:32)
[2018-02-22] MEDS ORDERED: MORPHINE SULFATE 10 MG/ML INJ IV PRN ×2 (17:32→18:15)
[2018-02-22] MEDS ORDERED: FENTANYL CITRATE INJ/PF 100 MCG/2 ML AMPUL IV PRN ×3 (17:32)
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
--- NOTE | 2018-02-22 18:14 | Discharge Summary ---
Discharge Summary (SDC) - Discharge Final Diagnosis: Foreign body right hand Date of Surgery: 02/22/18 Discharge Date: 02/22/18 Condition: Good Treatment or Instructions: Schedule Follow Up w/ Dr. Alexander Be @ [facility] to be seen in 10-14 days or as scheduled [place]: [place]: [place]: May remove dressing on postop day #3, keep incision covered and dry. Ice and elevate May begin finger range of motion attempting to make full fist. Stool softener of choice when on pain medication. Prescriptions: Oxycodone HCl/Acetaminophen [Percocet 5-325 mg Tablet] 1 tab PO Q6 PRN #15 tab PRN Reason: Sulfamethoxazole/Trimethoprim [Bactrim Ds Tablet] 1 each PO BID PRN #20 tablet PRN Reason: Discharge Diet: As Tolerated Respiratory Treatments at Home: Deep Breathing/Coughing Discharge Activity: No Lifting Over 10 Pounds, No Lifting/Push/Pulling Report the Following to Your Physician Immediately: Fever over 101 Degrees, Unusual Bleeding, Redness, Swelling, Warmth, Increased Soreness
[2018-02-22] MEDS ORDERED: OXYCODONE-ACETAMINOPHEN 5-325 MG TABLET PO PRN (18:15)
[2018-02-22] MEDS ORDERED: ONDANSETRON HCL INJ/PF 4 MG/2 ML SDV IV PRN (18:15)
[2018-02-22] MEDS: FENTANYL CITRATE INJ/PF 100 MCG/2 ML AMPUL ONE ×2 (18:22→18:30)
--- NOTE | 2018-02-22 18:49 | RADIOLOGY REPORT (SQ) ---
EXAM DESCRIPTION: NO CHG FLUORO; HAND RIGHT 2 VIEWS COMPLETED DATE/TIME: 02/22/2018 6:29 pm REASON FOR STUDY: RT HAND INCISION/DRAINAGE, FOREIGN BODY REMOVAL COMPARISON: 02/18/2018 FLUOROSCOPY TIME: 0.19 minutes 4 Images saved to PACS LIMITATIONS: None. PROCEDURE: Foreign body removal FINDINGS: Images from fluoro document removal of foreign bodies. IMPRESSION: Foreign body removal. Refer to operative note for further information. COMMENT: PQRS 6045F: Fluoroscopy time of the procedure is documented in the report. TECHNICAL DOCUMENTATION: JOB ID: [id number] [employer]- All Rights Reserved Reading location - IP/workstation name: [email or web address]
--- NOTE | 2018-02-22 18:49 | RADIOLOGY REPORT (SQ) ---
EXAM DESCRIPTION: NO CHG FLUORO; HAND RIGHT 2 VIEWS COMPLETED DATE/TIME: 02/22/2018 6:29 pm REASON FOR STUDY: RT HAND INCISION/DRAINAGE, FOREIGN BODY REMOVAL COMPARISON: 02/18/2018 FLUOROSCOPY TIME: 0.19 minutes 4 Images saved to PACS LIMITATIONS: None. PROCEDURE: Foreign body removal FINDINGS: Images from fluoro document removal of foreign bodies. IMPRESSION: Foreign body removal. Refer to operative note for further information. COMMENT: PQRS 6045F: Fluoroscopy time of the procedure is documented in the report. TECHNICAL DOCUMENTATION: JOB ID: [id number] [employer]- All Rights Reserved Reading location - IP/workstation name: [email or web address]
[2018-02-22 21:58] VITALS: BP 108/54
== END 2018-02-22 22:35 | disposition home or self-care (01) ==
LOC: OROUT 14:38 → 2N 19:26 → OROUT 22:35
PROVIDERS: ATTEND Orthopaedic Surgery
DX: S60.551S Superficial foreign body of right hand, sequela (principal); V49.9XXS Car occupant (driver) (passenger) injured in unspecified traffic accident, sequela; L02.511 Cutaneous abscess of right hand; M67.843 Other specified disorders of tendon, right hand; F17.210 Nicotine dependence, cigarettes, uncomplicated
CPT/HCPCS: 36415; 87070; 87205; 85027; 87075; 87077; 87186; 73120; 26445 ×2; 11043; J2250; J3490 ×2; J0690; J1100; J1885; J3010; J1170; J0330; J2405; J2704; J0131; 01810

== ENCOUNTER 2020-02-25 11:24 | Emergency (ER) | payer BC, OTHER ==
[2020-02-25] MEDS ORDERED: OXYCODONE-ACETAMINOPHEN 5-325 MG TABLET PO ONE (13:07)
[2020-02-25] MEDS ORDERED: IBUPROFEN 800 MG TABLET PO ONE (13:07)
--- NOTE | 2020-02-25 13:09 | ER Document Report ---
HPI - HPI Time Seen by Provider: 02/25/20 13:03 Pain Level: 3 Notes: 24-year-old male patient presented to the emergency department chief complaint of right knee pain. Patient reports about 6 years ago he had an injury to this right knee and was seen by orthopedics. He states he did not require surgery. He states ever since then he has had intermittent knee pain. Today he twisted his knee and states he has had severe pain since then. He denies any direct trauma to the area. He has not taken any medication today for his symptoms. He reports unable to bear weight. - ROS Systems Reviewed and Negative: Yes All other systems reviewed and negative - MUSCULOSKELETAL Musculoskeletal: REPORTS: Extremity pain Past Medical History - General Information source: Patient - Social History Smoking Status: Current Every Day Smoker Frequency of alcohol use: Occasional Family History: Reviewed & Not Pertinent - Medical History Medical History: Negative Renal/ Medical History: Denies: Hx Peritoneal Dialysis Past Surgical History: Reports: Hx Appendectomy - Immunizations Hx Diphtheria, Pertussis, Tetanus Vaccination: Yes - 2009 Vertical Provider Document - CONSTITUTIONAL Notes: PHYSICAL EXAMINATION: GENERAL: Well-appearing, well-nourished and in no acute distress. HEAD: Atraumatic, normocephalic. EYES: Pupils equal round extraocular movements intact, conjunctiva are normal. ENT: Nares patent NECK: Normal range of motion LUNGS: No respiratory distress Musculoskeletal: Limited range of motion to right knee, no obvious deformity or crepitus. Tenderness with palpation of the anterior medial and lateral knee. Strong popliteal pulse. NEUROLOGICAL: Normal speech. PSYCH: Normal mood, normal affect. SKIN: Warm, Dry, normal turgor, no rashes or lesions noted. - INFECTION CONTROL TRAVEL OUTSIDE OF THE [place].S. IN LAST 30 DAYS: No Course - Re-evaluation Re-evalutation: Knee X-Ray 02/25/20 13:07 IMPRESSION: NEGATIVE STUDY OF THE RIGHT KNEE. NO RADIOGRAPHIC EVIDENCE OF ACUTE INJURY. - Vital Signs Vital signs: Temp Pulse Resp BP Pulse Ox 98.4 F 67 20 116/92 H 99 02/25/20 11:31 02/25/20 11:31 02/25/20 11:31 02/25/20 11:31 02/25/20 11:31 - Laboratory Results Critical Laboratory Results Reviewed: No Critical Results - Radiology Results Critical Radiology Results Reviewed: No Critical Results Procedures - Immobilization right leg Pre-Proc Neuro Vasc Exam: Normal Immobilizer type: Crutches, Knee immobilizer Post-Proc Neuro Vasc Exam: Normal Alignment checked and good: Yes Discharge - Discharge Clinical Impression: Right knee injury Qualifiers: Encounter type: initial encounter Qualified Code(s): S89.91XA - Unspecified injury of right lower leg, initial encounter Condition: Stable Disposition: HOME, SELF-CARE Additional Instructions: Suspected Internal Knee Injury The examiner of your injured knee suspects an internal injury to the cartilage or internal ligaments. This must be further investigated by an older adult social work specialist. The knee should be protected, ice packed, and elevated while awaiting your follow-up exam by the orthopedist. If there is severe swelling, severe pain, or any new symptoms while awaiting your exam, you should call the orthopedist. (If he/she is unavailable, call us or return for re-examination.) Please call orthopedics Thursday to schedule a follow-up appointment, let them know you are seen in the emergency department on 02/25/2020 and we are concerned about a possible internal knee injury. You may safely take ibuprofen 600 mg every 6 hours with the pain medication I have prescribed. Prescriptions: Hydrocodone/Acetaminophen [[place] 5-325 mg Tablet] 1 tab PO Q6HP PRN #12 tab PRN Reason: Forms: Return to Work Referrals: JOSLYN MCMAHAN JR, DO [ACTIVE PROVISIONAL STAFF] - Follow up as needed
--- NOTE | 2020-02-25 13:34 | RADIOLOGY REPORT (SQ) ---
EXAM DESCRIPTION: KNEE RIGHT 4 VIEWS IMAGES COMPLETED DATE/TIME: 02/25/2020 1:21 pm REASON FOR STUDY: knee injury COMPARISON: None. NUMBER OF VIEWS: Four views. TECHNIQUE: AP, lateral, and both oblique radiographic images acquired of the right knee. LIMITATIONS: None. FINDINGS: MINERALIZATION: Normal. BONES: No acute fracture or dislocation. No worrisome bone lesions. JOINT: No effusion. SOFT TISSUES: No soft tissue swelling. No radio-opaque foreign body. OTHER: No other significant finding. IMPRESSION: NEGATIVE STUDY OF THE RIGHT KNEE. NO RADIOGRAPHIC EVIDENCE OF ACUTE INJURY. TECHNICAL DOCUMENTATION: JOB ID: [id number] [employer]- All Rights Reserved Reading location - IP/workstation name: [email or web address]
[2020-02-25 15:39] VITALS: BP 117/70
== END 2020-02-25 15:38 | disposition home or self-care (01) ==
LOC: ER 11:24
DX: S89.91XA Unspecified injury of right lower leg, initial encounter (principal); M25.561 Pain in right knee; X50.1XXA Overexertion from prolonged static or awkward postures, initial encounter; F17.200 Nicotine dependence, unspecified, uncomplicated
CPT/HCPCS: 99284